=== PATIENT | male | born 1935 | race Caucasian/White ===

== ENCOUNTER 2017-11-13 06:00 | Day surgery (SDC) | payer MEDICARE ==
[2017-11-11 14:24] VITALS: BP 140/82
[2017-11-11 14:41] LABS: BASOPHILS % (AUTO) 1.3 % (0.0-5.0); EOSINOPHILS % (AUTO) 5.4 % (0.0-8.0); HEMATOCRIT 42.5 % (42-54); LYMPHOCYTES % (AUTO) 21.4 % (21.0-51.0); MEAN CORPUSCULAR HEMOGLOBIN 30.6 pg (27.0-33.0); MEAN CORPUSCULAR HGB CONC 34.1 g/dL (32.0-36.0); MEAN CORPUSCULAR VOLUME 89.8 fL (79-99); MONOCYTES % (AUTO) 9.4 % (3.0-13.0); NEUTROPHILS % (AUTO) 62.5 % (40.0-77.0); NUCLEATED RED BLOOD CELLS 0.1 % (0.0-0.19); PLATELET COUNT (AUTO) 317 K/uL (130-400); RED BLOOD CELL COUNT(AUTO) 4.74 MIL/uL (4.50-6.20); RED CELL DISTRIBUTION WIDTH 13.7 % (11.0-15.5); WHITE BLOOD COUNT (AUTO) 7.8 K/uL (4.8-10.8)
[2017-11-11 14:51] LABS: APPEARANCE,URINE Clear (CLEAR); BILIRUBIN,URINE Negative (NEGATIVE); COLOR,URINE Yellow (YELLOW); GLUCOSE, URINE (UA) Negative (NEGATIVE); KETONES,URINE Negative (NEGATIVE); LEUKOCYTE ESTERASE ,URINE Negative (NEGATIVE); NITRATE,URINE Negative (NEGATIVE); OCCULT BLOOD,URINE Trace (NEGATIVE); PROTEIN,URINE Negative (NEGATIVE); UROBILINOGEN,URINE 0.2 mg/dL (0.2-1.0)
[2017-11-11 15:03] LABS: CREATININE 1.6 mg/dL (0.5-1.5); POTASSIUM 4.1 mmol/L (3.5-5.1)
[2017-11-11 15:08] LABS: BACTERIA,URINE Rare /HPF (None Seen); RBC,URINE None Seen /HPF (0-1); WBC,URINE 0-1 /HPF (0-1)
[2017-11-13] VITALS (12 sets, daily range): BP systolic 92–113; BP diastolic 55–86
[~2017-11-13 06:00] MED LIST: AEC81 PO; ATOR40TA71 PO; CETI10TA57 PO; LISI30TA4 PO; VITAMIN B12 PO
[2017-11-13] MEDS: CEFTRIAXONE SODIUM 1 GM IVP SCH ×2 (06:00→09:12)
[2017-11-13] MEDS ORDERED: LACTATED RINGERS 1000ML 1,000 ML IV ONE (07:40)
[2017-11-13] MEDS ORDERED: WATER FOR INJECTION,STERILE 20 ML VIAL ONE (07:41)
[2017-11-13] MEDS ORDERED: GUAI-787 PO (07:49)
[2017-11-13] MEDS ORDERED: LEVO250T59 PO (07:49)
[2017-11-13] MEDS ORDERED: MIDAZOLAM HCL 1 MG/ML 2ML VIAL ONE (09:03)
[2017-11-13] MEDS ORDERED: FENTANYL CITRATE PF 50 MCG/1 ML 2ML VIAL ONE (09:03)
== END 2017-11-13 10:50 | disposition home or self-care (01) ==
LOC: DAH 06:00
PROVIDERS: ATTEND Urology
DX: C61 Malignant neoplasm of prostate (principal); I10 Essential (primary) hypertension; J44.9 Chronic obstructive pulmonary disease, unspecified; N40.2 Nodular prostate without lower urinary tract symptoms; Z98.890 Other specified postprocedural states; Z79.2 Long term (current) use of antibiotics
CPT/HCPCS: 36415; 55700; 76942; 80048; 81001; 85025; 87088; 88305; 93005; A4215; A4358; J0696; J2250; J3010; J7120